=== PATIENT | male | born 1990 | race Caucasian/White ===

== ENCOUNTER 2024-11-21 22:16 | Emergency (ER) | payer OTHER, SELFPAY ==
--- NOTE | ~2024-11-21 | XR_ITS ---
CLINICAL HISTORY: direct blow right big toe First toe three views Comparison: None provided Findings: No acute fracture or dislocation identified. No acute focal bony abnormality. No radiopaque foreign body noted. Impression: No acute bony abnormality This document has been electronically signed by: Bradley Suazo MD on 11/22/2024 00:11:35
--- NOTE | 2024-11-21 22:34 | ED_ITS ---
HPI - Extremity Injury (Upper) General Chief Complaint: Extremity Injury, Lower Stated Complaint: Right foot injur from a tray of dishes falling Time Seen by Provider: 11/21/24 23:26 Source: patient, RN notes reviewed and old records reviewed Mode of arrival: ambulatory Limitations: no limitations History of Present Illness ED Provider: Nadeen Dutta PA-C HPI narrative: Patient here with great toe pain. Large dish fell on his toe barefoot while at home today. He reports immediate pain and bleeding under his toenail which causes a great deal of discomfort for him. Big toe pain only, hurts to put shoes on. No open cuts. No paresthesias or weakness. No radiation of pain. Hurts to walk. No prior trauma. TD unknown. Related Data Previous Rx's ?Medication ?Instructions ?Recorded cephalexin 500 mg capsule 500 mg PO TID #21 caps 11/21 Allergies Allergy/AdvReac Type Severity Reaction Status Date / Time No Known Allergies (No Known Allergy Verified 11/21/24 22:37 Allergies*) General Chief Complaint: Extremity Injury, Lower Stated Complaint: Right foot injur from a tray of dishes falling Time Seen by Provider: 11/21/24 23:26 Source: patient, RN notes reviewed and old records reviewed Mode of arrival: ambulatory Limitations: no limitations Related Data Previous Rx's ?Medication ?Instructions ?Recorded cephalexin 500 mg capsule 500 mg PO TID #21 caps 11/21 Allergies Allergy/AdvReac Type Severity Reaction Status Date / Time No Known Allergies (No Known Allergy Verified 11/21/24 22:37 Allergies*) Physical Exam Exam: Exam: General: Appears in no acute distress, appears well-nourished body habitus is obese, appears stated age. No septic or ill-appearing. Vitals were reviewed as normal, and PMH/Social and Surgical hx was reviewed, including allergies and current medications. Head: Normocephalic, no obvious trauma or skin lesions noted. Eyes: EOMI ENMT: moist oral mucosa Neck: trachea midline Cardiovascular: peripheral perfusion normal, Regular heart rate, regular rhythm, distal pulses 2+, cap refill < 3 secs Respiratory: no respiratory distress Abdomen: non-distended Extremities: warm and moving without difficulty with exception of right great toe, 90 % of toenail has subungual hematoma with TTP of distal phalanx, no obvious open cuts or deformity. Psych: Cooperative Neuro: Alert and oriented. DTRs intact, sensation intact, strength equal and symmetric, compartments soft Vital Signs: Vital Signs: Last Vital Signs Temp 97.9 F 11/22/24 00:16 Pulse 78 11/22/24 00:16 Resp 18 11/22/24 00:16 BP 150/72 H 11/22/24 00:16 Pulse Ox 96 11/22/24 00:16 O2 Del Method Room Air 11/22/24 00:16 BMI result Body Mass Index 38.1 Course Course Course Narrative: This is a RME preformed in triage by Nadeen Dutta PA-C. Date: 11/21/24, [id number] pm. Patient presents with direct blow to right big toe 40 mins ago, dishes at home fell on toe while wearing socks Has subungual hematoma 95% of nail, no open wound, TTP. Work UP: xray right big toe, consider nail trepidation, TD Is UTD. Will defer full ROS and PE to treating provider. Patient will continued to be monitored in the interim. Medical Decision Making Medical Decision Making MDM Narrative: Presentation most consistent with simple Subungual Hematoma post injury within the last 2 hours to the left great toe. ANABELLE: crush injury; this is not work related. Patient denies physical assault. No overt evidence of Flexor or Extensor tendon dysfunction, compartment syndrome, arterial or nerve injury. X- rays were ordered due to suspicion of tuft fracture. Interventions: Trephination. Defer splinting given no fracture on XR. TD utd. Rx/ home care: Patient instructed to soak the affected nail bed in warm water two to three times daily for the next week.Will give keflex prophylaxis as this would be creating an open fracture if final read differs or unclear.? Disposition: Discharge home with strict return precautions and advice to follow up with primary care doctor in next 24-48 hours for further evaluation or recheck in here in the same time frame. Will return sooner for concerns. ED precautions given.? Orthopedic f/u recommended . Patient demonstrated verbal understanding of the plan and agreed. Differential Diagnosis Differential Diagnoses: The differential diagnosis associated with the presentation includes tuft fracture, cellulitis, open fracture Admission/Observation Consideration of admission/observation: Escalation of care including admission/observation considered Independent Interpretation I performed an independent interpretation of an: Plain X-Ray Interpretation: no fracture Radiology Impression Discussion of test interpretation with radiology: I have reviewed the radiologist's reading. Radiologist Impression: no fracture Prescription Management I considered prescription management with: Pain Medication and Antibiotic Procedures Nail Trephination Time out: Yes Location (toes): left (first toe) Sterile prep: betadine Method of drainage: other (cautery pen) Procedure successful: Yes Patient tolerated procedure: No Complications Discharge Plan Discharge Clinical Impression: Hematoma, subungual, great toe, right, Crushing injury of great toe of right foot Patient Disposition: Home, Self-Care Instructions: Subungual Hematoma (ED) Additional Instructions: You were seen in the emergency department today following a crush injury to your great toe. You had imaging done that did not show any obvious fracture however the final read was not done by the time it was time to discharge you will be given antibiotic prophylaxis just in case that shows a tiny hairline fracture as this creates an open fracture with a the nail trephination that you had done. Please soak the affected nailbed in warm water 2 or 3 times daily for the next few days place bacitracin on his simple Band-Aid. Please keep the pressure dressing on it until tomorrow. Return for any concerns such as increased bleeding pain at that site or redness. Please follow-up with orthopedics Prescriptions: New cephalexin 500 mg capsule 500 mg PO TID Qty: 21 0RF Referrals: [facility] [Provider Group] Stand Alone Forms: Work/School Release Interventions: ED Discharge Assessment Last Done: 11/22/24 00:16 Discharge Date/Time: 11/22/24 00:17 Print Language: [place]
[2024-11-21 22:35] VITALS: BP 150/72; PULSE 78; RESP 18; TEMP 36.6; O2SAT 96; BMI 38.1
[2024-11-22 00:16] VITALS: BP 150/72; PULSE 78; RESP 18; TEMP 36.6; O2SAT 96
== END 2024-11-22 00:17 | disposition home or self-care (01) ==
PROVIDERS: Emergency Provider Emergency Medicine Emergency Medical Services
DX: S90.211A Contusion of right great toe with damage to nail, initial encounter (principal); S97.111A Crushing injury of right great toe, initial encounter; M79.671 Pain in right foot; Y29.XXXA Contact with blunt object, undetermined intent, initial encounter; Y93.9 Activity, unspecified; Y92.009 Unspecified place in unspecified non-institutional (private) residence as the place of occurrence of the external cause; Y99.8 Other external cause status
CPT/HCPCS: 10140; 73660; 99282; 99283; 99284

== ENCOUNTER → 2024-11-21 22:37 | Outpatient (BNV) | payer OTHER, SELFPAY | PROVIDERS: Emergency Provider Emergency Medicine Emergency Medical Services; Visit Provider Radiology Diagnostic Radiology | DX: S99.921A Unspecified injury of right foot, initial encounter (principal); W20.8XXA Other cause of strike by thrown, projected or falling object, initial encounter | CPT/HCPCS: 73660 ==

== ENCOUNTER 2024-12-11 09:21 | Outpatient (AMB) | payer OTHER, SELFPAY ==
[2024-12-11 09:29] VITALS: BMI 34.9
--- NOTE | 2024-12-11 09:29 | MHC.OFFVIS ---
Vital Signs 12/11/24 09:29 Height 5 ft 11 in Weight 250 lb BMI 34.9 Intake Visit Reasons: New Pt - Left Great Toe Injury 11/21/24 Intake Note: Reza is a 34 year old male who presents today as a New Patient for evaluation of his Right Great Toe Injury. Patient was seen at [facility] on 11/21/24 after a Large [facility] fell on his toe while barefoot. He had an acute onset of pain and also had bleeding from under his toenail. He was discharged with a course of cephalexin. Pt reports no pain currently and he is almost done with the cephalexin medication he has 1 day left. He notices a slight discomfort if pressure is applied on the toe Findings: No acute fracture or dislocation identified. No acute focal bony abnormality. No radiopaque foreign body noted. Impression: No acute bony abnormality Allergies No Known Allergies (No Known Allergies*) Allergy (Verified 12/11/24 09:30) HPI HPI New Pt - Left Great Toe Injury 11/21/24: Details: The patient is a 34-year-old male no pertinent past medical history presents for initial evaluation of right big toe injury. The injury was sustained from dropping a ceramic mug on his foot 2 weeks ago. He went to the emergency room and received x-rays which were negative. Initially, there was minimal bleeding under the nail, however since then he has noticed increased bruising to the nail. He otherwise denies any pain to his toe, denies any pain to his foot when walking. Social History: - Exercise: Regular walking at work and gym activities, including cardio and weightlifting Review of Systems Const All systems reviewed & are unremarkable except as noted in HPI and below Physical Exam Vital Signs: BMI result Body Mass Index 34.9 Extrem Other: *Bilateral Lower Extremity Focused Exam Vascular: DP/PT 2/4, CFT<3s to digits, TG warm to cool, no pedal edema Derm: Dry subungual hematoma to 80% of the right hallux nail. The nail is not lifted, there is no edema, there is no drainage. No signs of open laceration at this point. No clinical signs of infection. Neuro: Protective sensation grossly intact to bilateral lower extremities. MSK: No pain on palpation of the right hallux nail. Results Reviewed Results Reviewed: Podiatry X-ray Read: 11/22/2024 X-ray right toes 2 views (AP, MO, Lateral) reviewed which shows no fractures, dislocations, or gross abnormalities. Bone density is within normal limits. Normal anatomy. No evidence of swelling, foreign body, or calcifications. I personally reviewed the imaging and my findings are listed above. Assessment & Plan Assessment & Plan (1) Contusion of right great toe with damage to nail, initial encounter: Code(s): S90.211A - Contusion of right great toe with damage to nail, initial encounter Category: Medical Plan: Reviewed right foot x-rays with the patient. No signs of fracture. Explained that he may notice his nail lifting and loosening over the next few weeks. If it does happen, he was instructed to return to our office. Treatment options might include splinting and monitoring versus total nail avulsion. He was recommended warm Epsom salt soaks which might help break up the dry blood underneath the nail. No limitations in activity at this point. He is to advance his activities as tolerated. Follow up as needed. Coding Level of Care Code New Pt Level 3 (28417) Diagnoses Contusion of right great toe with damage to nail, initial encounter S90.211A Time Spent (min) 30
== END 2024-12-11 09:45 | disposition home or self-care (01) ==
LOC: HO.HPODS 09:22
PROVIDERS: Visit Provider Student in an Organized Health Care Education/Training Program
DX: S90.211A Contusion of right great toe with damage to nail, initial encounter (principal)
CPT/HCPCS: 99203